=== PATIENT | female | born 1980 | race Hispanic/Latino ===

== ENCOUNTER 2017-08-02 09:24 | Observation (INO) | payer OTHER, SELFPAY ==
[2017-08-02 09:44] LABS: #Eosinphils 0.2 thou/uL (0.0-0.7); #Lymphocytes 2.7 thou/uL (1.20-3.40); #Monocytes 0.6 thou/uL (0.11-0.59); #Neutrophils 5.3 thou/uL (1.40-6.50); %Basophils 0.3 % (0.0-1.0); %Eosinophils 2.7 % (0.0-10.0); %Lymphocytes 30.4 % (21.0-51.0); %Monocytes 6.6 % (0.0-10.0); Hematocrit 47.2 % (36.0-47.0); Mean Platelet Volume 6.7 fL (7.4-10.4); Red Blood Cell (RBC) Count 5.28 mill/uL (4.20-5.40); White Blood Cell (WBC) Count 8.9 thou/uL (4.8-10.8)
[2017-08-02] MEDS ORDERED: Nitroglycerin 0.4 MG TAB (25 Tab Bottle) ONE (10:06)
[2017-08-02 10:07] LABS: ALT (SGPT) 14 U/L (8-55); AST (SGOT) 14 U/L (5-34); Alkaline Phosphatase 88 U/L (40-150); Anion Gap 15 mmol/L (10-20); BUN (Urea Nitrogen) 10 mg/dL (7.0-18.7); Bilirubin, Total 0.5 mg/dL (0.2-1.2); CK (CPK) 92 U/L (29-168); Calc. Creatinine Clearance 0 mL/min (70-130); Calcium 9.5 mg/dL (7.8-10.44); Carbon Dioxide 22 mmol/L (22-29); Chloride 104 mmol/L (98-107); Estimated GFR-MDRD 86; Lipase 18 U/L (8-78); Protein, Total 8.3 g/dL (6.0-8.3)
[2017-08-02 10:11] LABS: Troponin I Less than 0.010 ng/mL (< 0.028)
--- NOTE | 2017-08-02 10:46 | RAD ---
EXAM: ONE VIEW CHEST: HISTORY: Past medical history of chest pain. COMPARISON: 07/13/16. FINDINGS: Portable upright chest demonstrates a normal cardiac silhouette. The pulmonary vessels and hilum ar e normal. No mass. No consolidation. No pneumothorax or osseous abnormalities. IMPRESSION: No acute cardiopulmonary process. POS: [facility]
[2017-08-02] MEDS ORDERED: Ondansetron HCl/PF 4 MG/2 ML Vial ONE (10:50)
[2017-08-02] MEDS ORDERED: Ondansetron ODT 4 MG TAB SL PRN (12:09)
[2017-08-02] MEDS ORDERED: Ondansetron HCl/PF 4 MG/2 ML Vial IVP PRN (12:09)
[2017-08-02 13:02] LABS: Troponin I 0.012 ng/mL (< 0.028)
[2017-08-02 13:17] VITALS: BMI 39.9
[2017-08-02 16:09] LABS: Troponin I Less than 0.010 ng/mL (< 0.028)
[2017-08-02] MEDS ORDERED: Ketorolac Tromethamine 30 MG/ML VIAL IVP SCH (17:00)
--- NOTE | 2017-08-03 01:05 | HP-2 ---
PRIMARY CARE PHYSICIAN: None. CODE STATUS: FULL. ATTENDING PHYSICIAN: Brian Rodriguez M.D. CHIEF COMPLAINT: Left-sided chest pain. HISTORY OF PRESENT ILLNESS: A 36-year-old female with history of anxiety, presents with 3 days of left-sided chest and back pain. The pain started primarily in her left back ribs and slowly progressed to the front. It is worse with deep breaths, relieved slightly by lying on her right si de, worse with certain movements of her arms. Now, includes some left shoulder pressure-like pain t hat does not cause shortness of breath. The pain does not get worse with exertion, did not come on with exertion and does not improve with rest. In the ER, she was given Zofran. She declined nitrog lycerin and morphine and she was given aspirin. PAST MEDICAL HISTORY: 1. Hyperlipidemia, but follow up was normal Lipids, not currently on a statin. 2. Depression, not currently medically treated. 3. Anxiety, not currently medically treated. PAST SURGICAL HISTORY: x1 with bilateral tubal ligation. ALLERGIES: CODEINE (anaphylactic reaction). MEDICATIONS: None. FAMILY HISTORY: Diabetes, hypertension, hyperlipidemia with significant paternal history for acute coronary syndrome including her father having his first heart attack at age 50. SOCIAL HISTORY: The patient is a never smoker. Does not drink alcohol currently, but approximately 10 years ago, was a frequent binge type drinker. No recreational drugs. 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 REVIEW OF SYSTEMS: Review of systems was done and 12-point review of systems was negative except fo r what is mentioned above in the HPI. PHYSICAL EXAMINATION: VITAL SIGNS: Blood pressure 117/82, pulse 85, respiratory rate 18, T-max 97.9, pulse ox 97% on room air and current weight 97 kilograms. GENERAL: Alert and oriented x4, in no acute distress, obese and appropriately interactive. HEENT: PERRLA. EOMI. Conjunctivae within normal limits. TM, nasal mucosa and oropharynx within n ormal limits. NECK: Supple, without lymphadenopathy or thyromegaly. CARDIOVASCULAR: Regular rate and rhythm without murmurs or gallops. Radial pulses 2+, pedal pulses 2+. Chest was tender to palpation under the left breast and along approximately the 5th and 6th ri bs and back. This palpation created the same type of chest pain that patient was presenting for. RESPIRATORY: Normal effort without retractions. Clear to auscultation bilaterally. ABDOMEN: Soft and nontender to palpation. Bowel sounds x4 without mass or distention. EXTREMITIES: No clubbing, cyanosis or edema. MUSCULOSKELETAL: Structure and tone within normal limits. NEUROLOGIC: No focal deficits. Sensation within normal limits. PSYCHIATRIC: The patient is appropriate. LABORATORY DATA: White blood cell count 8.9, hemoglobin 16, hematocrit 47.2 and platelets 286. Sod ium 137, potassium 3.5, chloride 104, bicarbonate 22, BUN 10, creatinine 0.75, glucose 93 and tropon in less than 0.010. IMAGING DATA: EKG showed normal sinus rhythm, but with some nonspecific T-wave changes in lateral l zen[place] including inverted T waves in lead II. This was changed from previous, but the patient did hav e some nonspecific T-wave changes in most recent EKG prior to this. Chest x-ray with no acute disea se. ASSESSMENT AND PLAN: 1. Atypical chest pain, likely costochondritis, but we will trend troponins. We will repeat EKG if symptoms recur. Because of the inverted T waves even though this is likely nonacute coronary syndr ome, but with obesity and patient's family history, we will do a stress test to rule out susceptibil ity to myocardial infarctions and any current coronary artery disease. If troponins are negative, w e will treat the patient's pain with Toradol. 2. Deep venous thrombosis prophylaxis with sequential compression devices. History and physical exam as well as management discussed with Dr. Brian Rodriguez, he is in [facility].
--- NOTE | 2017-08-03 06:16 | HP ---
DATE OF SERVICE: 08/02/2017 DATE OF ADMISSION: 08/02/2017 CHIEF COMPLAINT: Chest pain. HISTORY OF PRESENT ILLNESS: This is a 36-year-old female who presents with a 2- day history of left-sided chest pain that she describes as sharp and squeezing, radiates into her left arm, but nowhere else. It has been persistent. It is worse with movement of the extremity, lying on her left side whenever pressure is applied to that side and with pressure over the left side of her sternum. There is no associated nausea, vomiting, dyspnea on exertion, diaphoresis or other symptoms. She did not really take anything and tried to make it better, but it got bad enough this morning, 06/15 that she decided to come in to be seen in the ER, she had an EKG, labs, given aspirin, D-dimer that was negative, admitted for chest pain rule out. PAST MEDICAL HISTORY: Significant for hyperlipidemia, depression, anxiety. PAST SURGICAL HISTORY: section and bilateral tubal ligation. ALLERGIES: CODEINE, which causes anaphylaxis. SOCIAL HISTORY: Denies tobacco, ethanol or drug use. FAMILY HISTORY: Positive for diabetes, hyperlipidemia, hypertension, coronary artery disease at young age in her father. MEDICATIONS: Currently on aspirin, Tylenol and Zofran p.r.n. REVIEW OF SYSTEMS: Constitutional: Negative for fever or chills. Eyes: Negative for decreased visual acuity or pain. Ears, nose, mouth and throat: No sore throat or oral lesions. Cardiovascular: See HPI. Respiratory: Denies cough or hemoptysis. Gastrointestinal: Denies nausea, vomiting, diarrhea or constipation. Genitourinary: Denies dysuria or urgency. Musculoskeletal: Denies myalgias or arthralgias except as documented in HPI. Skin: Denies rash or lesions. Neurologic: Denies weakness or numbness. Psychiatric: Positive for depression and anxiety. Heme: Denies any bruising or bleeding. PHYSICAL EXAMINATION: VITAL SIGNS: Most recent temperature of 97.7, pulse 83, respirations 12, O2 sat on room air is 96%, blood pressure 109/67. GENERAL: She is in no acute distress. She just ate some Crum's in the room. HEENT: Eyes: Without icterus or injection. Ears, nose, mouth and throat: Moist mucous membranes. Pinna normal. Nares patent. CARDIOVASCULAR: Regular rate and rhythm without murmurs, gallops or rubs. No peripheral edema. RESPIRATORY: Clear to auscultation bilaterally with no increased work of breathing. GASTROINTESTINAL: Bowel sounds positive. Nontender to palpation. GENITOURINARY: Deferred. MUSCULOSKELETAL: She is tender to palpation in the left costochondral junction kind of throughout the entire left side and says this is pretty consistent with pain she has been having. SKIN: No obvious rash or wound. NEUROLOGIC: Motor is 5/5 in upper and lower extremities. Sensation is intact to light touch throughout in those distributions as well. PSYCHIATRIC: Alert and oriented x3. Mood and affect appropriate for current medical situation. LABORATORY AND IMAGING DATA: White count 8.9, hemoglobin 16.0, platelets 286. D-dimer 0.29, which is negative. Sodium 137, potassium 3.5, chloride 104, bicarbonate 22, BUN 10, creatinine 0.75 with estimated GFR 86, glucose 93, mag 2.3 and reassuring LFTs, creatine kinase 92. Troponin, the first is 0.01, second 0.012, and the third is less than 0.01. Lipase 18. BNP is 32.6. Chest x-ray with no acute process. EKG, normal sinus rhythm, very shallow T-wave inversions in V3 and V4. ASSESSMENT AND PLAN: This is a 36-year-old female with atypical chest pain. 1. In light of her family history and some mild EKG changes, will go ahead and proceed with the imaging. I will continue aspirin pending risk stratification. 2. Hyperlipidemia. We will go ahead and order lipid panel and restart statin depending upon her ASCVD risk. 3. Obesity. We will student counsellor weight loss and exercise, send A1c Deep venous thrombosis prophylaxis with sequential compression devices. MTDD
--- NOTE | 2017-08-03 06:38 | PDOC.FM ---
- Subjective Subjective: Patient states she had a good night. She was unable to have the full stress test done yesterday and she is waiting to go for the second part today. She denies chest pain, sob, n/v/d. She does admit to some left sided rib pain. She admits to some cough after trying to take a deep breath and that is when the pain is the worse. She does not have any other complaints at this time. - Objective Vital Signs & Weight: Vital Signs (12 hours) Temp Pulse Resp BP BP Pulse Ox 08/03/17 04:12 98.7 F 56 L 14 112/76 96 08/02/17 19:57 97.4 F L 69 12 105/65 95 08/02/17 19:56 97.7 F 83 12 Weight Weight 95.708 kg I&O: 08/01/17 08/02/17 08/03/17 06:59 06:59 06:59 Intake Total 500 Balance 500 Result Diagrams: 08/02/17 09:38 08/02/17 09:38 <Matt Layne - Last Filed: 08/03/17 08:14> - Objective Vital Signs & Weight: Vital Signs (12 hours) Temp Pulse Resp BP Pulse Ox 08/03/17 08:00 97.8 F 62 16 08/03/17 07:27 97.8 F 62 16 110/69 100 08/03/17 04:12 98.7 F 56 L 14 112/76 96 Weight Weight 95.708 kg I&O: 08/02/17 08/03/17 08/04/17 06:59 06:59 06:59 Intake Total 500 240 Balance 500 240 Result Diagrams: 08/02/17 09:38 08/02/17 09:38 <Freddy Hill - Last Filed: 08/03/17 11:11> Phys Exam - Physical Examination HEENT: PERRLA, moist MMs Neck: no nodes, supple Respiratory: no wheezing, clear to auscultation bilateral Cardiovascular: RRR, no significant murmur Gastrointestinal: soft, non-tender, no distention, positive bowel sounds Musculoskeletal: no edema, pulses present Tenderness under her Left breast. More positional than to palpation Neurological: non-focal, moves all 4 limbs Psychiatric: normal affect, A&O x 3 <Matt Layne - Last Filed: 08/03/17 08:14> Dx/Plan (1) Costochondritis Code(s): M94.0 - CHONDROCOSTAL JUNCTION SYNDROME [TIETZE] Status: Acute Plan: -Troponins negative -Part 2/2 stress today. -Tylenol for pain. (2) Anxiety associated with depression Status: Acute Plan: -Not currently medicated and doing well. -Recommend follow up as an outpatient if needing more intervention. (3) Hyperlipidemia Code(s): E78.5 - HYPERLIPIDEMIA, UNSPECIFIED Status: Chronic Plan: -History of hyperlipidemia -Not currently medicated. -Triglycerides 160 -Total Cholesterol 204 -LDL 135 -HDL 37 -Will recommend outpatient follow up - Plan Plan: Pending results of stress test, will be discharged today. <Matt Layne - Last Filed: 08/03/17 08:14> Attending Addendum - Attending Addendum I personally evaluated the patient and discussed the management with Dr. Layne. I agree with the History, Examination, Assessment and Plan documented above with any addition or exceptions noted below. Patient has had no recurrence of chest pain since admission. Reports arm soreness with movement as likely cause of her symptoms. Stress test completed this morning, will await final read. If normal, able to d/c home today. Recommend statin medication due to elevated TC and LDL. <Freddy Hill - Last Filed: 08/03/17 11:11>
[2017-08-03] MEDS: Acetaminophen 325 MG TAB PO PRN ×2 (07:11→11:23)
[2017-08-03] MEDS: Aspirin 325 MG TAB PO SCH ×2 (10:30→11:25)
[2017-08-03] MEDS: Ketorolac Tromethamine 30 MG/ML VIAL IVP SCH ×2 (11:21→11:25)
--- NOTE | 2017-08-03 11:21 | NM ---
CARDIAC SPECT: CLINICAL HISTORY: 36-year-old female with chest pain, hypertension, diabetes, and dyslipidemia. TECHNIQUE: A myocardial perfusion scan was performed using the single isotope two day protocol with 30 mCi tech netium-99m sestamibi injected intravenously for both stress and rest images. Exercise stress was mon itored and interpreted by Dr. Yusuf. FINDINGS: A small fixed defect is seen in the apex. No reversible defects are identified. GATED SPECT LVEF: 76%. WALL MOTION EXAM: Normal. IMPRESSION: No evidence of reversible ischemia. POS: [facility]
[2017-08-03 11:46] VITALS: BP 111/59; TEMP 97.5
--- NOTE | 2017-08-04 01:51 | DIS-2 ---
DATE OF ADMISSION: 08/02/2017 DATE OF DISCHARGE: 08/03/2017 RESIDENT: Dr. Layne. ADMITTING ATTENDING: Dr. Rodriguez. DISCHARGE ATTENDING: Dr. Hill. CONSULTATIONS: None. PROCEDURES: Nuclear medicine stress test. PRIMARY DIAGNOSES: 1. Costochondritis. 2. Anxiety associated with depression. 3. Hyperlipidemia. DISCHARGE MEDICATIONS: 1. Simvastatin 10 mg daily. 2. Meloxicam 7.5 mg daily. DISCONTINUED MEDICATIONS: None. HISTORY OF PRESENT ILLNESS AND HOSPITAL COURSE: This is a 36-year-old female with a histor y of anxiety that presents with 3 days of left-sided chest pain and back pain. The pain started emeka sanjana in her left back and ribs, slowly it progressed to the front. It is worse with deep breaths, relieved slightly by lying on right side, worse with certain movements of her arms. Now include so me left shoulder pressure-like pain that does not cause shortness of breath. The pain does not get worse with exertion, did not come on with exertion and does not improve with rest. In the ER, she w as given Zofran. She declined nitroglycerin and morphine and she was given aspirin. During her hos pitalization, she did have a cardiac stress test, and she had to have a 2-day stress because of the contrast burden. The cardiac stress test came back negative and within normal result without any ev idence of reversible ischemia. The patient did still complain of the left-sided more chest wall arleth n and she said it was more positional when she would move is when the pain would cause the most. Sh e did say that Toradol helped the pain at that time. She did have a lab value significant for saanz sterol level of 204, a triglyceride level of 160, and an LDL cholesterol level of 135. She has been told previously that she has hyperlipidemia, but was not treated. We do recommend at this time ini tiating a simvastatin 10 mg and her following up with PCP for more long-term management. During the hospitalization, she also had troponin I's trended, they are less than 0.01, 0.012, and then less t jasmine 0.01. She had no other notable labs. She did have a chest x-ray that showed no acute cardiopul monary process. She tolerated the hospitalization well and was discharged in satisfactory condition . DISPOSITION: Stable. DISCHARGE INSTRUCTIONS: 1. Location: She will be discharged home into her own care. 2. Diet will be as tolerated, but we do recommend exercise and diet plan. 3. Activity will be as tolerated with no restrictions. 4. Follow up will be with [facility] within 1 week as well as being followed up for her hypercholesterolemia. We wished her the best of luck and hope she has no further problems from a c ardiac standpoint.
== END 2017-08-03 13:25 | disposition home or self-care (01) ==
LOC: ERS 09:24 → 2SW 10:40
PROVIDERS: ADMIT Family Medicine; ATTEND Family Medicine
DX: M94.0 Chondrocostal junction syndrome [Tietze] (principal); F41.8 Other specified anxiety disorders; E78.5 Hyperlipidemia, unspecified; Z88.5 Allergy status to narcotic agent; Z79.899 Other long term (current) drug therapy; Z98.51 Tubal ligation status
CPT/HCPCS: 36415; 71010; 78452; 80053; 80061; 82550; 82553; 83690; 83735; 83880; 84484; 85025; 85379; 93005; 93017; 96360; 96361; 96374; A9500; G0378; J1885; J2270; J2405

== ENCOUNTER 2017-10-21 11:02 | Emergency (ER) | payer SELFPAY ==
[2017-10-21] MEDS ORDERED: Ibuprofen 200 MG TAB ONE (12:16)
== END 2017-10-21 12:20 | disposition home or self-care (01) ==
LOC: ERS 11:02
DX: J02.9 Acute pharyngitis, unspecified (principal); E78.5 Hyperlipidemia, unspecified; F41.9 Anxiety disorder, unspecified; F32.9 Major depressive disorder, single episode, unspecified
CPT/HCPCS: 87081; 87430; 99283

== ENCOUNTER 2017-10-24 20:01 | Emergency (ER) | payer SELFPAY | END 2017-10-24 20:17 | disposition left against medical advice (07) | LOC: ERS 20:01 | DX: Z53.21 Procedure and treatment not carried out due to patient leaving prior to being seen by health care provider (principal) ==

== ENCOUNTER 2017-11-14 12:34 | Emergency (ER) | payer SELFPAY, OTHER ==
--- NOTE | 2017-12-02 22:42 | EKG ---
Test Reason : Blood Pressure : / mmHG Vent. Rate : 080 BPM Atrial Rate : 080 BPM P-R Int : 144 ms QRS Dur : 086 ms QT Int : 348 ms P-R-T Axes : 050 000 013 degrees QTc Int : 401 ms Normal sinus rhythm Normal ECG Confirmed by PRESTON ALLEN ([id number]), business editor KATIE RAMIREZ ([id number]) on 12/02/2017 10:40:52 PM Referred By: [facility] Confirmed By:PRESTON ALLEN
--- NOTE | 2017-12-02 22:42 | EKG ---
Test Reason : Blood Pressure : / mmHG Vent. Rate : 074 BPM Atrial Rate : 074 BPM P-R Int : 148 ms QRS Dur : 086 ms QT Int : 374 ms P-R-T Axes : 063 014 024 degrees QTc Int : 415 ms Normal sinus rhythm Normal ECG Confirmed by PRESTON ALLEN ([id number]), medical editor KATIE RAMIREZ ([id number]) on 12/02/2017 10:40:57 PM Referred By: Confirmed By:PRESTON ALLEN
== END 2017-11-14 20:39 | disposition home or self-care (01) ==
LOC: ERS 12:34
DX: J06.9 Acute upper respiratory infection, unspecified (principal); F41.9 Anxiety disorder, unspecified; Z79.899 Other long term (current) drug therapy
CPT/HCPCS: 87804; 93005

== ENCOUNTER 2018-05-25 00:22 | Emergency (ER) | payer SELFPAY ==
[2018-05-25] MEDS ORDERED: Acetaminophen 650 MG Suppository ONE (00:30)
[2018-05-25 00:51] LABS: #Basophils 0.1 thou/uL (0.0-0.2); #Eosinphils 0.2 thou/uL (0.0-0.7); #Lymphocytes 2.2 thou/uL (1.20-3.40); #Monocytes 0.6 thou/uL (0.11-0.59); #Neutrophils 3.3 thou/uL (1.40-6.50); %Basophils 1.3 % (0.0-1.0); %Eosinophils 2.4 % (0.0-10.0); %Lymphocytes 34.1 % (21.0-51.0); %Monocytes 9.6 % (0.0-10.0); %Neutrophils 52.6 % (42.0-75.0); Mean Corpuscular HGB CONC 34.8 g/dL (32.0-36.0); Mean Corpuscular Hemoglobin 30.4 pg (27.0-31.0); Mean Corpuscular Volume 87.3 fL (78.0-98.0); Mean Platelet Volume 6.9 fL (7.4-10.4); Platelet Count 247 thou/uL (130-400); Red Blood Cell (RBC) Count 4.59 mill/uL (4.20-5.40); White Blood Cell (WBC) Count 6.4 thou/uL (4.8-10.8)
[2018-05-25 01:02] LABS: Bilirubin Negative (Negative); Blood, Urine Moderate (Negative); Clarity CLEAR (Clear); Glucose, Urine (Dipstick) Negative (Negative); Leukocyte Small (Negative); Nitrite Negative (Negative); Protein, Urine (Dipstick) Negative (Neg-Trace); Specific Gravity, Urine 1.015 (1.002-1.036); Urobilinogen 0.2 mg/dL (0.2-1.0); pH, Urine 6.5 (5.0-9.0)
[2018-05-25 01:04] LABS: Amphetamine Not Detected (NotDetected); Barbiturates Screen Not Detected (NotDetected); Benzodiazepine Screen Not Detected (NotDetected); Cocaine Metabolite Screen Not Detected (NotDetected); Medtox Control Line Valid? VALID (VALID); Medtox Reader # READER 4; Methadone Not Detected (NotDetected); Methamphetamine Not Detected (NotDetected); Opiate Screen Not Detected (NotDetected); Oxycodone Screen Not Detected (NotDetected); Phencyclidine (PCP) Not Detected (NotDetected); THC/Cannabinoid Screen Not Detected (NotDetected); Tricyclic Screen Not Detected (NotDetected)
[2018-05-25 01:05] LABS: Bacteria/HPF Rare-Few HPF (None Seen); Hyaline Casts/LPF 0-3 HYALINE CAST LPF (0-3 Hyaline); Pathc Cast-AUWi Flag 0.29 (0-2.49); Pregnancy Test - Urine (BHCG) Negative (Negative); Pregu Control Background? CLEAR/WHITE (CLR/WHITE); Pregu Control Bar Appear? YES (CONTROL BAR); RBC/HPF 0-3 HPF (0-3); Specific Gravity 1.015 (1.002-1.036)
[2018-05-25 01:16] LABS: ALT (SGPT) 22 U/L (8-55); AST (SGOT) 22 U/L (5-34); Albumin 3.9 g/dL (3.5-5.0); Alkaline Phosphatase 99 U/L (40-150); Anion Gap 13 mmol/L (10-20); BUN (Urea Nitrogen) 11 mg/dL (7.0-18.7); Bilirubin, Total 0.3 mg/dL (0.2-1.2); Calc. Creatinine Clearance 0 mL/min (70-130); Calcium 8.9 mg/dL (7.8-10.44); Carbon Dioxide 20 mmol/L (22-29); Chloride 105 mmol/L (98-107); Estimated GFR-MDRD 87; Globulin 3.6 g/dL (2.4-3.5); Glucose 92 mg/dL (70-105); Lipase 35 U/L (8-78); Potassium 3.7 mmol/L (3.5-5.1); Protein, Total 7.5 g/dL (6.0-8.3); Sodium 134 mmol/L (136-145)
[2018-05-25 01:17] LABS: Acetaminophen Less than 6.0 mcg/mL (10.0-30.0); Alcohol Less than 10 mg/dL (Less than 10); Salicylate Less than 8.0 mg/dL (15.0-30.0)
[2018-05-25 02:05] LABS: Troponin I Less than 0.010 ng/mL (< 0.028)
[2018-05-25] MEDS ORDERED: cefTRIAXone\\ROCEPHIN 1 GM VIAL ONE (03:19)
--- NOTE | 2018-05-25 07:53 | RAD ---
CHEST 1 VIEW: HISTORY: Chest pain. COMPARISON: A chest radiograph 08/02/17. FINDINGS: Lungs are hypoinflated with vascular crowding. There appears to be a left upper lobe airspace opacit y that may be sequelae of technique. No pneumothorax. IMPRESSION: Possible left upper lobe airspace opacity may be sequelae of technique. Followup 2 views of the ches t may be beneficial. POS: [facility]
--- NOTE | 2018-05-25 10:31 | CT ---
PRELIMINARY REPORT/[facility]/EMERGENTY AFTER-HOURS PROCEDURE CT Head Without Intravenous Contrast EXAM DATE/TIME: 05/25/2018 12:59 AM CLINICAL HISTORY: 37 years old, female; Signs and symptoms; Altered mental status/memory loss; Patient HX: AMS TECHNIQUE: Axial computed tomography images of the head/brain without intravenous contrast. All CT scans at this facility use at least one of these dose optimization techniques: automated exposure control; mA and/ or kV adjustment per patient size (includes targeted exams where dose is matched to clinical indicati on); or iterative reconstruction. COMPARISON: No relevant prior studies available. FINDINGS: Limitations: Motion artifact limits this study. Brain: No evidence of acute intracranial hemorrhage, extraxial fluid or midline shift. No evidence of acute large vessel infarction. Ventricles: Normal. No ventriculomegaly. Bones/joints: Normal. No acute fracture. Sinuses: Normal as visualized. No acute sinusitis. Mastoid air cells: Normal as visualized. No mastoid effusion. Soft tissues: Normal. IMPRESSION: 1. Motion artifact limits this study. 2. No evidence of acute intracranial hemorrhage, extraxial fluid or midline shift. 3. No evidence of acute large vessel infarction. Thank you for allowing us to participate in the care of your patient. Dictated and Authenticated by: Pancho Gonzalez MD 05/25/2018 2:27 AM Central Time ([place] & [place]) FINAL REPORT EMERGENCY AFTER HOURS BRAIN CT WITHOUT IV CONTRAST: Date: 05/25/18 Time: 0059 hours HISTORY: 37-year-old female with history of altered mental status. FINDINGS/IMPRESSION: No mass or bleed, or other significant acute process. Little change from 03/21/14. Report in agreement with preliminary report given on-call by Rebekah. POS: [facility]
== END 2018-05-25 04:54 | disposition home or self-care (01) ==
LOC: ERS 00:22
DX: R55 Syncope and collapse (principal); N39.0 Urinary tract infection, site not specified
CPT/HCPCS: 36415; 36416; 51701; 70450; 71045; 80053; 80306; 80307; 81003; 81015; 81025; 82553; 83605; 83690; 83880; 84484; 85025; 87040; 87077; 87086; 87186; 93005; 96361; 96365; J0696

== ENCOUNTER 2019-07-08 07:25 | Emergency (ER) | payer SELFPAY ==
[2019-07-08] MEDS ORDERED: Acetaminophen 500 MG TAB ONE (07:50)
[2019-07-08] MEDS ORDERED: Ketorolac Tromethamine 30 MG/ML VIAL ONE (07:50)
[2019-07-08 08:08] LABS: #Eosinphils 0.1 thou/uL (0.0-0.7); #Monocytes 0.6 thou/uL (0.11-0.59); #Neutrophils 5.6 thou/uL (1.40-6.50); %Basophils 0.5 % (0.0-1.0); %Eosinophils 1.8 % (0.0-10.0); %Lymphocytes 24.1 % (21.0-51.0); %Monocytes 7.4 % (0.0-10.0); %Neutrophils 66.3 % (42.0-75.0); Hemoglobin 14.1 g/dL (12.0-16.0); Mean Corpuscular HGB CONC 34.1 g/dL (32.0-36.0); Mean Corpuscular Hemoglobin 30.2 pg (27.0-31.0); Mean Corpuscular Volume 88.3 fL (78.0-98.0); Mean Platelet Volume 7.3 fL (7.4-10.4); Platelet Count 277 thou/uL (130-400); RBC Distribution Width 11.1 % (11.5-14.5); Red Blood Cell (RBC) Count 4.69 mill/uL (4.20-5.40); White Blood Cell (WBC) Count 8.4 thou/uL (4.8-10.8)
== END 2019-07-08 09:20 | disposition home or self-care (01) ==
LOC: ERS 07:25
DX: R51 Headache (principal); M62.838 Other muscle spasm; F41.9 Anxiety disorder, unspecified
CPT/HCPCS: 85025; 96361; 96374; J1885

== ENCOUNTER 2020-03-13 15:07 | Inpatient (IN) | payer OTHER, SELFPAY ==
[2020-03-13] MEDS ORDERED: Acetaminophen 500 MG TAB ONE (15:29)
[2020-03-13] MEDS ORDERED: Ketorolac Tromethamine 30 MG/ML VIAL ONE (15:29)
[2020-03-13 15:32] LABS: #Basophils 0.1 thou/uL (0.0-0.2); #Eosinphils 0.1 thou/uL (0.0-0.7); #Lymphocytes 1.7 thou/uL (1.20-3.40); #Monocytes 0.9 thou/uL (0.11-0.59); #Neutrophils 8.9 thou/uL (1.40-6.50); %Basophils 0.6 % (0.0-1.0); %Eosinophils 0.8 % (0.0-10.0); %Lymphocytes 14.5 % (21.0-51.0); %Monocytes 7.5 % (0.0-10.0); %Neutrophils 76.6 % (42.0-75.0); Hemoglobin 14.4 g/dL (12.0-16.0); Mean Corpuscular HGB CONC 33.8 g/dL (32.0-36.0); Mean Corpuscular Hemoglobin 30.4 pg (27.0-31.0); Mean Corpuscular Volume 89.8 fL (78.0-98.0); Mean Platelet Volume 7.2 fL (7.4-10.4); Platelet Count 251 thou/uL (130-400); Red Blood Cell (RBC) Count 4.74 mill/uL (4.20-5.40); White Blood Cell (WBC) Count 11.7 thou/uL (4.8-10.8)
[2020-03-13] MEDS ORDERED: Ondansetron PF 4 MG/2 ML Vial ONE (15:33)
[2020-03-13 15:53] LABS: ALT (SGPT) 24 U/L (8-55); AST (SGOT) 18 U/L (5-34); Albumin 3.9 g/dL (3.5-5.0); Alkaline Phosphatase 109 U/L (40-110); Anion Gap 16 mmol/L (10-20); BUN (Urea Nitrogen) 8 mg/dL (7.0-18.7); Bilirubin, Total 0.3 mg/dL (0.2-1.2); Calc. Creatinine Clearance 0 mL/min (70-130); Calcium 9.1 mg/dL (7.8-10.44); Carbon Dioxide 20 mmol/L (22-29); Chloride 105 mmol/L (98-107); Estimated GFR-MDRD Greater than 90; Globulin 3.6 g/dL (2.4-3.5); Glucose 96 mg/dL (70-105); Potassium 3.7 mmol/L (3.5-5.1); Protein, Total 7.5 g/dL (6.0-8.3); Sodium 137 mmol/L (136-145)
--- NOTE | 2020-03-13 16:01 | RAD ---
PORTABLE CHEST: 03/13/20 PROVIDED CLINICAL HISTORY: Dyspnea. FINDINGS: Comparison 05/25/18. The cardiac and mediastinal silhouette is within normal limits. There is consolidation at the right lung base. The lungs appear otherwise clear. No pleural fluid or pneumothorax apparent. IMPRESSION: Right basilar consolidation, compatible with pneumonia in the appropriate clinical context. POS: [facility]
[2020-03-13 17:46] LABS: Base Excess-Venous 0.9 mmol/L (-2.0 to 3.0); Bicarbonate (HCO3v) 20.9 mmol/L (22.0-28.0); CO2 Tension (PvCO2) 22.7 mmHg (40.0-50.0); Calcium, Ionized 0.88 mmol/L (See Comments:); Chloride 106 mmol/L (98-107); Hemoglobin - Calc 15.3 g/dL (12.0-16.0); Potassium 3.6 mmol/L (3.5-5.1); Sodium 136 mmol/L (138-145); T. Carbon Dioxide 21.6 mmol/L (22.0-28.0); vO2 Saturation-calc 96.1 % (60.0-85.0)
[2020-03-13] MEDS ORDERED: Ondansetron ODT 4 MG TAB PO PRN (20:26)
[2020-03-13] MEDS ORDERED: HYDROcodone/Acetaminophen 5/325 mg Tablet PO PRN (20:26)
[2020-03-13] MEDS ORDERED: Ondansetron PF 4 MG/2 ML Vial IVP PRN (20:26)
[2020-03-13 22:49] VITALS: BMI 42.0
--- NOTE | 2020-03-13 22:49 | PDOC.HHP ---
Hospitalist HPI - History of Present Illness cough dyspnea History of Present Illness: Case of an 39 y/o female with no pmhx who comes to hospital due to dyspnea fever and general malaise. patient refers she was on her usual state of health until yesterday when she had a quantified fever of 101. patient refers that apart from the fever she started with some cough with sputum production yellow/ greenish secretions, general malaise, myalgias and generalize weakness. she refers she was feeling pretty bad and went to the bathroom and she thinks she passed out because she wake up on the floor with his son by his side for which she was brought to hospital. patient denies any chest pain or diaphoresis but does feel her heart rate is elevated. patient denies any travel or sick contacts Hospitalist ROS - Review of Systems All other systems reviewed; all pertinent +/- noted in HPI/Subj Hospitalist History - Past Surgical History Past Surgical History: reports: , Tubal Ligation - Family History Family History: reports: cancer, diabetes mellitus, hypertension - Social History Smoking Status: Never smoker Alcohol: reports: None Drugs: reports: none Living Situation: With Family Activity level: independent ambulation - Exam General Appearance: ill appearing Eye: PERRL, anicteric sclera Neck: supple, symmetric, no JVD Heart: RRR, no murmur, no gallops Respiratory: CTAB, no wheezes, no rales, no ronchi Gastrointestinal: soft, non-tender, non-distended Extremities: no cyanosis, no clubbing, no edema Skin: normal turgor, no lesions, no rashes Neurological: cranial nerve grossly intact, normal sensation to touch, no weakness, no focal deficits Musculoskeletal: normal tone, normal strength, no muscle wasting Psychiatric: normal affect, normal behavior, A&O x 3 Hospitalist Results - Labs Result Diagrams: 03/13/20 15:23 03/13/20 15:23 Lab results: WBC 11.7 thou/uL (4.8-10.8) H 03/13/20 15:23 Hgb 14.4 g/dL (12.0-16.0) 03/13/20 15:23 Hct 42.5 % (36.0-47.0) 03/13/20 15:23 MCV 89.8 fL (78.0-98.0) 03/13/20 15:23 Plt Count 251 thou/uL (130-400) 03/13/20 15:23 Neutrophils % 76.6 % (42.0-75.0) H 03/13/20 15:23 VBG pCO2 22.7 mmHg (40.0-50.0) L* 03/13/20 15:48 VBG pO2 67.8 mmHg (35.0-45.0) H 03/13/20 15:48 Sodium 137 mmol/L (136-145) 03/13/20 15:23 Potassium 3.7 mmol/L (3.5-5.1) 03/13/20 15:23 Chloride 105 mmol/L (98-107) 03/13/20 15:23 Carbon Dioxide 20 mmol/L (22-29) L 03/13/20 15:23 BUN 8 mg/dL (7.0-18.7) 03/13/20 15:23 Creatinine 0.70 mg/dL (0.6-1.1) 03/13/20 15:23 Glucose 96 mg/dL (70-105) 03/13/20 15:23 Calcium 9.1 mg/dL (7.8-10.44) 03/13/20 15:23 Total Bilirubin 0.3 mg/dL (0.2-1.2) 03/13/20 15:23 AST 18 U/L (5-34) 03/13/20 15:23 ALT 24 U/L (8-55) 03/13/20 15:23 Alkaline Phosphatase 109 U/L (40-110) 03/13/20 15:23 Troponin I Less than 0.010 ng/mL (< 0.028) 03/13/20 15:23 B-Natriuretic Peptide 14.5 pg/mL (0-100) 03/13/20 15:23 Serum Total Protein 7.5 g/dL (6.0-8.3) 03/13/20 15:23 Albumin 3.9 g/dL (3.5-5.0) 03/13/20 15:23 - Radiology Interpretation Chest x-ray Status: report reviewed by me (R basilar consolidation) Hospitalist H&P A/P - Problem (1) Pneumonia Code(s): J18.9 - PNEUMONIA, UNSPECIFIED ORGANISM Status: Acute (2) COVID-19 ruled out Code(s): Z03.818 - ENCNTR FOR OBS FOR SUSP EXPSR TO OT BIOLG AGENTS RULED OUT Status: Acute (3) Dyspnea Code(s): R06.00 - DYSPNEA, UNSPECIFIED Status: Acute (4) Syncope Code(s): R55 - SYNCOPE AND COLLAPSE Status: Acute - Plan Plan: pneumonia / covid 19 r/o - patient arrived with fever chills tachycardia and mild leukocytosis, blood and sputum cultures were taken, abx were started. covid 19 test taken at the ED, cxr with R consolidation. covid precautions were taken syncope - patient refers episode of passing out, no post ictal state, initial trop negative, likely secondary to above, will run serial troponins and order d- dimer, will also send 2d echo, f/u results. will monitor with tele, ekg showed sinus tachy
[2020-03-13] MEDS: Sodium Chloride 0.9% 1,000 ML IV SCH (23:37)
[2020-03-13] MEDS: Acetaminophen 325 MG TAB PO PRN (23:49)
[2020-03-13 23:55] LABS: Troponin I Less than 0.010 ng/mL (< 0.028)
[2020-03-14 03:16] LABS: Band 2 % (5-11); Lymphocytes 10 % (21-51); MDiff Complete? YES; Mean Corpuscular HGB CONC 34.2 g/dL (32.0-36.0); Mean Corpuscular Volume 90.6 fL (78.0-98.0); Mean Platelet Volume 7.4 fL (7.4-10.4); Monocytes 6 % (0-10); Neutrophil 82 % (42-75); Platelet Count 216 thou/uL (130-400); RBC Distribution Width 10.9 % (11.5-14.5); Red Blood Cell (RBC) Count 4.18 mill/uL (4.20-5.40); White Blood Cell (WBC) Count 10.3 thou/uL (4.8-10.8)
[2020-03-14 03:17] LABS: Troponin I 0.021 ng/mL (< 0.028)
[2020-03-14 03:39] LABS: ALT (SGPT) 21 U/L (8-55); AST (SGOT) 15 U/L (5-34); Albumin 3.5 g/dL (3.5-5.0); Alkaline Phosphatase 91 U/L (40-110); Anion Gap 13 mmol/L (10-20); BUN (Urea Nitrogen) 5 mg/dL (7.0-18.7); Bilirubin, Total 0.4 mg/dL (0.2-1.2); Calc. Creatinine Clearance 176 mL/min (70-130); Calcium 8.3 mg/dL (7.8-10.44); Carbon Dioxide 19 mmol/L (22-29); Chloride 106 mmol/L (98-107); Estimated GFR-MDRD Greater than 90; Globulin 3.1 g/dL (2.4-3.5); Glucose 107 mg/dL (70-105); Potassium 3.6 mmol/L (3.5-5.1); Protein, Total 6.6 g/dL (6.0-8.3); Sodium 134 mmol/L (136-145)
[2020-03-14] MEDS: Acetaminophen 325 MG TAB PO PRN ×5 (04:05→21:50)
[2020-03-14] MEDS: Enoxaparin Sodium 40 MG/0.4 ML SYRINGE SC SCH (07:41)
[2020-03-14] MEDS: Sodium Chloride 0.9% 1,000 ML IV SCH (07:43)
--- NOTE | 2020-03-14 15:05 | PDOC.HOSPP ---
- Subjective Encounter Date: 03/14/20 Encounter Time: 15:00 Subjective: f/u for R-sided PNA and COVID-19 rule out currently receiving Levaquin IV. Still with prominent coughing. - Objective Vital Signs & Weight: Vital Signs (12 hours) Temp Pulse Resp BP Pulse Ox 03/14/20 12:00 99.3 F 99 20 122/67 99 03/14/20 08:00 99.2 F 100 20 130/66 95 Weight Weight 222 lb 6 oz I&O: 03/13/20 03/14/20 03/15/20 06:59 06:59 06:59 Intake Total 1350 600 Output Total 1600 Balance 1350 -1000 Result Diagrams: 03/14/20 02:45 03/14/20 02:45 Additional Labs: Microbiology 03/13/20 20:59 Venous blood - Right Hand Blood Culture - Preliminary Specimen has been received and culture in progress. No Growth to date. 03/13/20 20:59 Venous blood - Left Hand Blood Culture - Preliminary Specimen has been received and culture in progress. No Growth to date. Laboratory Tests 03/13/20 03/13/20 03/13/20 15:23 15:23 15:23 WBC 11.7 H Neutrophils % 76.6 H Neutrophils % (Manual) D-Dimer Carbon Dioxide 20 L Troponin I B-Natriuretic Peptide 14.5 03/13/20 03/13/20 03/13/20 15:23 15:23 23:23 WBC Neutrophils % Neutrophils % (Manual) D-Dimer Less than 0.27 L Carbon Dioxide Troponin I Less than 0.010 Less than 0.010 B-Natriuretic Peptide 03/14/20 03/14/20 02:45 02:45 WBC Neutrophils % Neutrophils % (Manual) 82 H D-Dimer Carbon Dioxide Troponin I 0.021 B-Natriuretic Peptide Radiology Reviewed by me: Yes (Echo - EF 55-60%,PCXR - RLL infiltrate) EKG Reviewed by me: Yes (Tele - SR) Hospitalist ROS - Medication Medications: Active Medications Generic Name Dose Route Start Last Admin Trade Name Freq PRN Reason Stop Dose Admin Acetaminophen 650 mg 03/13/20 20:26 03/14/20 11:48 Tylenol PO 650 mg Q4H PRN Administration Headache/Fever/Mild Pain (1-3) Enoxaparin Sodium 40 mg 03/14/20 09:00 03/14/20 07:41 Lovenox SC 40 mg 0900 MONICA Administration Levofloxacin 750 mg/ Device 150 mls @ 100 mls/hr 03/13/20 20:30 03/13/20 23: 37 IVPB 150 mls Q24HR MONICA Administration Sodium Chloride 1,000 mls @ 100 mls/hr 03/13/20 20:30 03/14/20 07:43 Normal Saline 0.9% IV 1,000 mls .Q10H MONICA Administration - Exam General Appearance: awake alert, ill appearing General - other findings: responsive to questions Eye: PERRL, anicteric sclera ENT: normocephalic atraumatic, no oropharyngeal lesions Neck: supple, symmetric, no JVD, no thyromegaly Heart: RRR, no murmur, no gallops, no rubs, normal peripheral pulses Respiratory: rhonchi, tachypneic Gastrointestinal: soft, non-tender, non-distended, normal bowel sounds, no palpable masses Extremities: no cyanosis, no clubbing, no edema Skin: normal turgor, no lesions Neurological: cranial nerve grossly intact, no new deficit Musculoskeletal: normal tone, normal strength, no muscle wasting Psychiatric: normal affect, A&O x 3 Hosp A/P (1) Pneumonia Code(s): J18.9 - PNEUMONIA, UNSPECIFIED ORGANISM Status: Acute Qualifiers: Pneumonia type: due to Pneumococcus Laterality: right Lung location: lower lobe of lung Qualified Code(s): J13 - Pneumonia due to Streptococcus pneumoniae Plan: Bacterial PNA suspected, continue Levaquin 750mg IV daily, await final blood cx results (2) Dyspnea Code(s): R06.00 - DYSPNEA, UNSPECIFIED Status: Acute Plan: Due to #1, see above, add Albuterol MDI 2puffs q4h (3) COVID-19 ruled out Code(s): Z03.818 - ENCNTR FOR OBS FOR SUSP EXPSR TO OTH BIOLG AGENTS RULED OUT Status: Acute Plan: Awaiting COVID-19 results (4) Syncope Code(s): R55 - SYNCOPE AND COLLAPSE Status: Acute Plan: Likely due to vasovagal response - Plan continue antibiotics, social worker health services, respiratory therapy, DVT proph w/SCDs Continue resp isolation Albuterol MDI Continue Levaquin IV Await final COVID-19 serology O2 support PRN
[2020-03-14 17:10] LABS: SARS-CoV-2 MS2 Positive; SARS-CoV-2 N Gene Negative; SARS-CoV-2 S Gene Negative; SARS-CoV-2 orf1ab Negative
[2020-03-15] MEDS: Sodium Chloride 0.9% 1,000 ML IV SCH ×4 (00:39→15:18)
[2020-03-15] MEDS: Acetaminophen 325 MG TAB PO PRN ×4 (04:18→21:41)
[2020-03-15] MEDS: Enoxaparin Sodium 40 MG/0.4 ML SYRINGE SC SCH (08:47)
--- NOTE | 2020-03-15 14:57 | PDOC.HOSPP ---
- Subjective Encounter Date: 03/15/20 Encounter Time: 14:35 Subjective: f/u for RLL PNA on Levaquin. Remains on room air but still has persistent cough. Ruled out for COVID-19. - Objective Vital Signs & Weight: Vital Signs (12 hours) Temp Pulse Resp BP Pulse Ox 03/15/20 11:21 98.5 F 81 18 120/70 96 03/15/20 07:40 98.2 F 82 16 112/64 98 03/15/20 04:04 99.3 F 91 20 118/66 96 Weight Weight 218 lb 12.8 oz I&O: 03/14/20 03/15/20 03/16/20 06:59 06:59 06:59 Intake Total 1350 3512 720 Output Total 2700 Balance 1350 812 720 Result Diagrams: 03/14/20 02:45 03/14/20 02:45 Additional Labs: Microbiology 03/13/20 20:59 Venous blood - Right Hand Blood Culture - Preliminary Specimen has been received and culture in progress. No Growth to date. 03/13/20 20:59 Venous blood - Left Hand Blood Culture - Preliminary Specimen has been received and culture in progress. No Growth to date. Laboratory Tests 03/13/20 03/13/20 03/13/20 15:23 15:23 15:23 WBC 11.7 H Neutrophils % 76.6 H Neutrophils % (Manual) D-Dimer Carbon Dioxide 20 L Troponin I B-Natriuretic Peptide 14.5 03/13/20 03/13/20 03/13/20 15:23 15:23 23:23 WBC Neutrophils % Neutrophils % (Manual) D-Dimer Less than 0.27 L Carbon Dioxide Troponin I Less than 0.010 Less than 0.010 B-Natriuretic Peptide 03/14/20 03/14/20 02:45 02:45 WBC Neutrophils % Neutrophils % (Manual) 82 H D-Dimer Carbon Dioxide Troponin I 0.021 B-Natriuretic Peptide Radiology Reviewed by me: Yes (2D echo - EF 55-60%) EKG Reviewed by me: Yes (Tele - SR) Hospitalist ROS - Medication Medications: Active Medications Generic Name Dose Route Start Last Admin Trade Name Freq PRN Reason Stop Dose Admin Acetaminophen 650 mg 03/13/20 20:26 03/15/20 08:48 Tylenol PO 650 mg Q4H PRN Administration Headache/Fever/Mild Pain (1-3) Enoxaparin Sodium 40 mg 03/14/20 09:00 03/15/20 08:47 Lovenox SC 40 mg 0900 [facility] Administration Levofloxacin 750 mg/ Device 150 mls @ 100 mls/hr 03/13/20 20:30 03/14/20 20: 09 IVPB 150 mls Q24HR MONICA Administration - Exam General Appearance: NAD, awake alert Eye: PERRL, anicteric sclera ENT: normocephalic atraumatic, no oropharyngeal lesions Neck: supple, symmetric, no JVD, no thyromegaly Heart: RRR, no murmur, no gallops, no rubs, normal peripheral pulses Respiratory - other findings: coarse sounds R chest, diminished Gastrointestinal: soft, non-tender, non-distended, normal bowel sounds, no palpable masses Extremities: no cyanosis, no clubbing, no edema Skin: normal turgor, no lesions Neurological: cranial nerve grossly intact, no new deficit Musculoskeletal: normal tone, normal strength, no muscle wasting Psychiatric: normal affect, A&O x 3 Hosp A/P (1) Pneumonia Code(s): J18.9 - PNEUMONIA, UNSPECIFIED ORGANISM Status: Acute Qualifiers: Pneumonia type: due to Pneumococcus Laterality: right Lung location: lower lobe of lung Qualified Code(s): J13 - Pneumonia due to Streptococcus pneumoniae Plan: Continue Levaquin 750mg IV daily, add Duonebs q4h, Robitussin DM (2) Dyspnea Code(s): R06.00 - DYSPNEA, UNSPECIFIED Status: Acute Plan: Secondary to #1, see above (3) COVID-19 ruled out Code(s): Z03.818 - ENCNTR FOR OBS FOR SUSP EXPSR TO OTH BIOLG AGENTS RULED OUT Status: Acute Plan: Negative COVID-19 (4) Syncope Code(s): R55 - SYNCOPE AND COLLAPSE Status: Acute - Plan continue antibiotics, social work program coordinator, respiratory therapy, out of bed/ambulate , DVT proph w/SCDs Continue resp isolation Add Duonebs q4h Continue Levaquin IV daily Negative COVID-19 serology Robitussin DM 15ml po q4h prn O2 support PRN Likely home in 24h
[2020-03-15] MEDS: Guaifenesin DM 100-10/5 ML UDCUP PO PRN ×2 (15:14→21:28)
[2020-03-15] MEDS ORDERED: Albuterol 200 PUFF (6.7GM INHALER) INH SCH (18:30)
[2020-03-16] MEDS: Acetaminophen 325 MG TAB PO PRN ×3 (04:23→22:10)
[2020-03-16] MEDS: Sodium Chloride 0.9% 1,000 ML IV SCH ×2 (04:24→18:00)
[2020-03-16] MEDS: Guaifenesin DM 100-10/5 ML UDCUP PO PRN ×4 (04:27→22:10)
[2020-03-16] MEDS: Enoxaparin Sodium 40 MG/0.4 ML SYRINGE SC SCH (09:00)
--- NOTE | 2020-03-16 13:35 | PDOC.HOSPP ---
- Subjective Encounter Date: 03/16/20 Encounter Time: 13:30 Subjective: f/u for PNA and ruled out of COVID-19. Receiving Levaquin currently. Still with prominent coughing. Overall feeling better. - Objective Vital Signs & Weight: Vital Signs (12 hours) Temp Pulse Resp BP Pulse Ox 03/16/20 11:26 98.3 F 93 12 120/73 97 03/16/20 10:40 83 16 03/16/20 08:14 98.3 F 82 16 120/70 94 L 03/16/20 07:53 72 16 98 03/16/20 04:00 99.6 F 87 20 119/68 97 Weight Weight 218 lb 12.8 oz I&O: 03/15/20 03/16/20 03/17/20 06:59 06:59 06:59 Intake Total 3512 3315 Output Total 2700 Balance 812 3315 Result Diagrams: 03/14/20 02:45 03/14/20 02:45 Additional Labs: Microbiology 03/13/20 20:59 Venous blood - Right Hand Blood Culture - Preliminary Specimen has been received and culture in progress. No Growth to date. 03/13/20 20:59 Venous blood - Left Hand Blood Culture - Preliminary Specimen has been received and culture in progress. No Growth to date. Laboratory Tests 03/13/20 03/13/20 03/13/20 15:23 15:23 15:23 WBC 11.7 H Neutrophils % 76.6 H Neutrophils % (Manual) D-Dimer Carbon Dioxide 20 L Troponin I B-Natriuretic Peptide 14.5 03/13/20 03/13/20 03/13/20 15:23 15:23 23:23 WBC Neutrophils % Neutrophils % (Manual) D-Dimer Less than 0.27 L Carbon Dioxide Troponin I Less than 0.010 Less than 0.010 B-Natriuretic Peptide 03/14/20 03/14/20 02:45 02:45 WBC Neutrophils % Neutrophils % (Manual) 82 H D-Dimer Carbon Dioxide Troponin I 0.021 B-Natriuretic Peptide Hospitalist ROS - Medication Medications: Active Medications Generic Name Dose Route Start Last Admin Trade Name Freq PRN Reason Stop Dose Admin Acetaminophen 650 mg 03/13/20 20:26 03/16/20 09:00 Tylenol PO 650 mg Q4H PRN Administration Headache/Fever/Mild Pain (1-3) Albuterol/Ipratropium 3 ml 03/15/20 19:00 03/16/20 10:40 Duoneb NEB 3 ml [id number] MOINCA Administration Enoxaparin Sodium 40 mg 03/14/20 09:00 03/16/20 09:00 Lovenox SC 40 mg 0900 MONICA Administration Guaifenesin/Dextromethorphan 15 ml 03/15/20 14:53 03/16/20 11:03 Robitussin Dm PO 15 ml Q4H PRN Administration Cough Levofloxacin 750 mg/ Device 150 mls @ 100 mls/hr 03/13/20 20:30 03/15/20 21: 28 IVPB 150 mls Q24HR MONICA Administration Sodium Chloride 1,000 mls @ 75 mls/hr 03/15/20 14:54 03/16/20 04:24 Normal Saline 0.9% IV 1,000 mls .[id number] MONICA Administration Ondansetron HCl 4 mg 03/13/20 20:26 03/16/20 11:01 Zofran IVP 4 mg Q6H PRN Administration Nausea/Vomiting - Exam General Appearance: NAD, awake alert Eye: PERRL, anicteric sclera ENT: normocephalic atraumatic, no oropharyngeal lesions Neck: supple, symmetric, no JVD, no thyromegaly Heart: RRR, no murmur, no gallops, no rubs, normal peripheral pulses Heart - other findings: S1, S2 Respiratory: no tachypnea Respiratory - other findings: few scattered rhonchi/coarse sounds in R base Gastrointestinal: soft, non-tender, non-distended, normal bowel sounds, no palpable masses Extremities: no cyanosis, no clubbing, no edema Skin: normal turgor, no lesions, no rashes Neurological: cranial nerve grossly intact, no new deficit Musculoskeletal: normal tone, normal strength, no muscle wasting Psychiatric: normal affect, A&O x 3 Hosp A/P (1) Pneumonia Code(s): J18.9 - PNEUMONIA, UNSPECIFIED ORGANISM Status: Acute Qualifiers: Pneumonia type: due to Pneumococcus Laterality: right Lung location: lower lobe of lung Qualified Code(s): J13 - Pneumonia due to Streptococcus pneumoniae (2) Dyspnea Code(s): R06.00 - DYSPNEA, UNSPECIFIED Status: Acute (3) COVID-19 ruled out Code(s): Z03.818 - ENCNTR FOR OBS FOR SUSP EXPSR TO OTH BIOLG AGENTS RULED OUT Status: Acute (4) Syncope Code(s): R55 - SYNCOPE AND COLLAPSE Status: Acute - Plan continue antibiotics, psychologist social, respiratory therapy, out of bed/ambulate , DVT proph w/SCDs Continue resp isolation Add Duonebs q4h Continue Levaquin IV daily another 24h then convert to po Negative COVID-19 serology Robitussin DM 15ml po q4h prn O2 support PRN Likely home in 24h
[2020-03-16] MEDS: Benzonatate 100 MG CAP PO SCH (19:21)
[2020-03-17] MEDS: Benzonatate 100 MG CAP PO SCH (09:43)
[2020-03-17] MEDS: Acetaminophen 325 MG TAB PO PRN (09:44)
[2020-03-17] MEDS: Sodium Chloride 0.9% 1,000 ML IV SCH (09:44)
[2020-03-17] MEDS: Enoxaparin Sodium 40 MG/0.4 ML SYRINGE SC SCH (09:44)
[2020-03-17] MEDS: Guaifenesin DM 100-10/5 ML UDCUP PO PRN (09:54)
[2020-03-17 13:18] VITALS: BP 109/68; TEMP 98.1
--- NOTE | 2020-03-17 14:07 | DIS ---
DATE OF ADMISSION: 03/13/2020 DATE OF DISCHARGE: 03/17/2020 DISCHARGE DIAGNOSES: 1. Bacterial pneumonia, suspected Streptococcus species. 2. Dyspnea secondary to bacterial pneumonia. 3. Syncope secondary to bacterial pneumonia, resolved. CONSULTATIONS: None. PERTINENT LABORATORY AND X-RAY FINDINGS: Troponin I negative x3. BNP 14.5. CBC showed a white blood cell count ranging between 10.3 to 11.7, hemoglobin ranged between 13.0 to 14.4. D-dimer less than 0.27, COVID-19 PCR not detected on 03/13/2020. Blood cultures x2 dated 03/13/2020 showed no growth at 48 hours. Respiratory culture dated 03/14/2020, showed moderate normal respiratory ayden. Portable chest x-ray dated 03/13/2020, showed right basilar consolidation compatible with pneumonia. 2D transthoracic echocardiogram dated 03/14/2020, showed ejection fraction of 55% to 60%. Normal study otherwise. HOSPITAL COURSE: The patient was initially admitted after presenting with increased shortness of breath, fever, and general malaise. Workup included chest imaging showing a right basilar infiltrate concerning for pneumonia. The patient was ruled out for COVID-19 by PCR as stated previously and continued on IV Levaquin throughout her hospital course. The patient received bronchodilator therapy in addition to antitussive agents and slowly clinically improved. The patient continued on room air and was not hypoxic during her hospital stay. Overall, the patient did remain clinically stable with supportive measures and ready for discharge on 03/17/2020. I have examined the patient at the time of discharge and discussed followup instructions. The patient clinically stable and ready for discharge. DISCHARGE MEDICATIONS: 1. Levaquin 750 mg p.o. daily x7 days. 2. Tessalon Perles 200 mg p.o. t.i.d. FOLLOWUP: The patient may follow up at [facility] within 7 days of discharge. CONDITION ON DISCHARGE: Stable. ACTIVITY: Ad-gavin. DIET: Heart healthy. CODE STATUS: Full. DISPOSITION: Home on 03/17/2020. TIME SPENT: Total time preparing and coordinating discharge is 33 minutes. Job ID: [id number]
--- NOTE | 2020-03-19 08:23 | PQF ---
LUIS FELIPE Molina DO [id number] CLINICAL DOCUMENTATION CLARIFICATION FORM: POST DISCHARGE Addendum to original discharge summary date: ____ Late entry note date: __ DATE:03/19/2020 ATTN: Luis Felipe Peres Please exercise your independent, professional judgment in responding to the clarification form. Clinical indicators are provided on the bottom of this form for your review Please check appropriate box(es): [ ] Sepsis due to Pneumonia [ x ] Localized infection without sepsis [ ] Other diagnosis [ ] Unable to determine In addition, please specify: Present on Admission (POA): [ x ] Yes [ ] No [ ] Unable to determine For continuity of documentation, please document condition throughout progress notes and discharge summary. Thank You. CLINICAL INDICATORS - SIGNS / SYMPTOMS / LABS Laboratory 03/13 WBC 11.7, Plt count 2515, [id number], Lymphocytes 14.5 Vital signs03/14 134/95, pulse 130, Resp 26, Temp 101.5 Blood culture 03/13 No growth after 5 days ED notes p2 SIRS scoring: pt did meet criteria H&P p1 03/13 Dr Aaron Comes to hospital due to dyspnea, fever and general malaise H&P p1 03/13 Dr Aaron she and a quantified fever of 101, apart from fever she started with some cough with sputum production Collected 03/14 Sputum culture:Moderate Gram positive cocci pairs and moderate gram variable rods RISK FACTORS H&P p3 03/13 Bacterial Pneumonia TREATMENT MAR 03/13 IV Levofloxacin 750 mg Mar 03/13 IV Sodium Chloride 1L Blood culture 03/13 Respiratory panel 03/13 1L oxygen Sputum culture Collected 03/14 (This form is maintained as a part of the permanent medical record) 2014 [employer]. All Rights Reserved [email or web address]
--- NOTE | 2020-03-19 08:25 | PQF ---
LUIS FELIPE Molina DO [id number] CLINICAL DOCUMENTATION CLARIFICATION FORM: POST DISCHARGE Addendum to original discharge summary date: ____ Late entry note date: __ DATE:03/19/2020 ATTN: Luis Felipe Peres Please exercise your independent, professional judgment in responding to the clarification form. Clinical indicators are provided on the bottom of this form for your review Please check appropriate box(s): [ ] Acute Respiratory Failure: [ ] with Hypoxia[ ] with Hypercapnia [ ] Acute Respiratory Failure due to: (etiology) [ x ] Hypoxia [ ] Other diagnosis [ ] Unable to determine In addition, please specify: Present on Admission (POA): [x ] Yes [ ] No [ ] Unable to determine For continuity of documentation, please document condition throughout progress notes and discharge summary. Thank You. CLINICAL INDICATORS - SIGNS / SYMPTOMS / LABS Laboratory 03/13 Venous blood gas pH7.751, pCo2 22.7, pO2 67.8, O2 sat 96.1% Vital signs03/14 134/95, pulse 130, Resp 26, Temp 101.5 H&P p1 03/13 Dr Aaron Comes to hospital due to dyspnea, fever and general malaise H&P p1 03/13 Dr Aaron she ahd a quantified fever of 101, apart from fever she started with some cough with sputum production Chest Xray 03/13 There is consolidation at he right lung base RISK FACTORS H&P p3 03/13 Bacterial Pneumonia TREATMENT MAR 03/13 Proventil Hfa 2puff neb JAN 08 -DuoNeb 3 ml neb JAN 08 IV Levofloxacin 750 mg Respiratory panel 03/13 1L oxygen Blood gas 03/13 Chest Xray Collected 03/13 (This form is maintained as a part of the permanent medical record) 2014 [employer] All Rights Reserved Maria G [email or web address]
--- NOTE | 2020-03-19 08:26 | PQF ---
LUIS FELIPE Molina DO [id number] CLINICAL DOCUMENTATION CLARIFICATION FORM: POST DISCHARGE Addendum to original discharge summary date: ____ Late entry note date: __ DATE:03/19/2020 ATTN: Luis Felipe Peres Please exercise your independent, professional judgment in responding to the clarification form. Clinical indicators are provided on the bottom of this form for your review Please check appropriate box(s): [ ] Associated Diagnosis: Hyponatremia [ x ] Not clinically significant laboratory findings [ ] Other diagnosis [ ] Unable to determine In addition, please specify: Present on Admission (POA): [ ] Yes [ x ] No [ ] Unable to determine For continuity of documentation, please document condition throughout progress notes and discharge summary. Thank You. CLINICAL INDICATORS - SIGNS / SYMPTOMS/ LABS are present in the medical record: Laboratory 03/13 POC Venous Sodium 136 Laboratory 03/14 Sodium 134 Vital signs03/14 134/95, pulse 130, Resp 26, Temp 101.5 H&P p1 03/13 Dr Aaron Comes to hospital due to dyspnea, fever and general malaise RISK FACTORS H&P p3 03/13 Bacterial Pneumonia TREATMENT Series of electrolyte labs 03/13Jan 08 IV Sodium Chloride 1L (This form is maintained as a part of the permanent medical record) 2014 [employer]. All Rights Reserved [email or web address]
--- NOTE | 2020-03-21 11:42 | EKG ---
Test Reason : Blood Pressure : / mmHG Vent. Rate : 118 BPM Atrial Rate : 118 BPM P-R Int : 144 ms QRS Dur : 080 ms QT Int : 302 ms P-R-T Axes : 038 -09 018 degrees QTc Int : 423 ms Sinus tachycardia Otherwise normal ECG Confirmed by ARLIN BLAS ([id number]), online editor HUNG VOGT ([id number]) on 03/21/2020 11:42:01 AM Referred By: Confirmed By:ARLIN Sánchez
== END 2020-03-17 13:19 | disposition home or self-care (01) | DRG 195 ==
LOC: ERS 15:07 → OBSVTOIN 20:32 → 2SW 20:32
PROVIDERS: ADMIT Internal Medicine; ATTEND Internal Medicine
PROC: 8E0ZXY6 Isolation (ICD-10-PCS; principal; 2020-03-13)
DX: J13 Pneumonia due to Streptococcus pneumoniae (principal); Z20.828 Contact with and (suspected) exposure to other viral communicable diseases; R09.02 Hypoxemia; Z98.51 Tubal ligation status; Z88.1 Allergy status to other antibiotic agents; Z88.5 Allergy status to narcotic agent; Z88.0 Allergy status to penicillin
CPT/HCPCS: 36415; 36416; 71045; 80053; 82330; 82803; 83880; 84484; 85007; 85025; 85027; 85379; 87040; 87070; 87205; 87635; 93005; 93306; 94640; 94760; 96374; 96375; J1650; J1885; J1956; J2405; J7620; U0003

== ENCOUNTER 2021-04-09 07:26 | Emergency (ER) | payer BC | END 2021-04-09 08:17 | disposition home or self-care (01) | LOC: ERS 07:26 | DX: J02.9 Acute pharyngitis, unspecified (principal) | CPT/HCPCS: 71045; 87081; 87430 ==

== ENCOUNTER 2021-09-07 20:25 | Emergency (ER) | payer BC | END 2021-09-07 23:37 | disposition home or self-care (01) | LOC: ERS 20:25 | DX: S93.402A Sprain of unspecified ligament of left ankle, initial encounter (principal); E78.5 Hyperlipidemia, unspecified; X58.XXXA Exposure to other specified factors, initial encounter ==

== ENCOUNTER 2021-10-30 23:43 | Emergency (ER) | payer BC, SELFPAY ==
[2021-10-31] MEDS ORDERED: Acetaminophen 500 MG TAB ONE (00:01)
[2021-10-31 00:45] LABS: #Lymphocytes 0.9 thou/uL (1.20-3.40); #Monocytes 0.3 thou/uL (0.11-0.59); #Neutrophils 6.5 thou/uL (1.40-6.50); %Basophils 0.1 % (0.0-1.0); %Eosinophils 0.1 % (0.0-10.0); %Monocytes 3.7 % (0.0-10.0); %Neutrophils 84.1 % (42.0-75.0); Hemoglobin 15.4 g/dL (12.0-16.0); Mean Corpuscular HGB CONC 35.6 g/dL (32.0-36.0); Mean Corpuscular Hemoglobin 31.7 pg (27.0-31.0); Platelet Count 280 thou/uL (130-400); RBC Distribution Width 11.1 % (11.5-14.5); Red Blood Cell (RBC) Count 4.85 mill/uL (4.20-5.40); White Blood Cell (WBC) Count 7.7 thou/uL (4.8-10.8)
[2021-10-31 01:03] LABS: ALT (SGPT) 22 U/L (8-55); AST (SGOT) 37 U/L (5-34); Albumin 3.7 g/dL (3.5-5.0); Alkaline Phosphatase 61 U/L (40-110); Anion Gap 16 mmol/L (10-20); BUN (Urea Nitrogen) 6 mg/dL (7.0-18.7); Bilirubin, Total 0.4 mg/dL (0.2-1.2); Calc. Creatinine Clearance 0 mL/min (70-130); Carbon Dioxide 22 mmol/L (22-29); Chloride 99 mmol/L (98-107); Globulin 4.3 g/dL (2.4-3.5); Glucose 96 mg/dL (70-105); Potassium 3.3 mmol/L (3.5-5.1); Sodium 134 mmol/L (136-145)
[2021-10-31 02:30] LABS: SARS-CoV-2 NAA Rapid Test DETECTED (NotDetected)
== END 2021-10-31 03:20 | disposition home or self-care (01) ==
LOC: ERS 23:43
DX: U07.1 COVID-19 (principal); E78.5 Hyperlipidemia, unspecified; E78.00 Pure hypercholesterolemia, unspecified
CPT/HCPCS: 0240U; 71045; 80053; 83880; 84484; 85025

== ENCOUNTER 2022-05-11 00:27 | Emergency (ER) | payer BC, SELFPAY ==
[2022-05-11 00:54] LABS: #Basophils 0.1 thou/uL (0.0-0.2); #Eosinphils 0.2 thou/uL (0.0-0.7); #Lymphocytes 3.4 thou/uL (1.20-3.40); #Monocytes 0.8 thou/uL (0.11-0.59); #Neutrophils 7.6 thou/uL (1.40-6.50); %Basophils 0.7 % (0.0-1.0); %Eosinophils 1.8 % (0.0-10.0); %Monocytes 6.3 % (0.0-10.0); %Neutrophils 63.2 % (42.0-75.0); Hemoglobin 14.7 g/dL (12.0-16.0); Mean Corpuscular HGB CONC 34.9 g/dL (32.0-36.0); Mean Corpuscular Hemoglobin 31.1 pg (27.0-31.0); Mean Corpuscular Volume 89.2 fL (78.0-98.0); Mean Platelet Volume 7.3 fL (7.4-10.4); Platelet Count 272 thou/uL (130-400); RBC Distribution Width 11.3 % (11.5-14.5); Red Blood Cell (RBC) Count 4.72 mill/uL (4.20-5.40)
[2022-05-11 00:56] LABS: Bilirubin Negative (Negative); Blood, Urine Negative (Negative); Clarity Clear (Clear); Glucose, Urine (Dipstick) Normal (Negative); Ketone, Urine Negative (Negative); Leukocyte Negative Leu/uL (Negative); Nitrite Negative (Negative); Pregnancy Test - Urine (BHCG) Negative (Negative); Pregu Control Background? CLEAR/WHITE (CLR/WHITE); Pregu Control Bar Appear? YES (CONTROL BAR); Protein, Urine (Dipstick) Negative (Neg-Trace); Specific Gravity, Urine 1.007 (1.002-1.036); Urobilinogen Normal mg/dL (Less than 2)
[2022-05-11 00:59] LABS: Specific Gravity 1.007 (1.002-1.036)
[2022-05-11 01:14] LABS: ALT (SGPT) 14 U/L (8-55); AST (SGOT) 14 U/L (5-34); Albumin 3.9 g/dL (3.5-5.0); Alkaline Phosphatase 88 U/L (40-110); Anion Gap 13 mmol/L (10-20); BUN (Urea Nitrogen) 11 mg/dL (7.0-18.7); Bilirubin, Total 0.3 mg/dL (0.2-1.2); Calc. Creatinine Clearance 0 mL/min (70-130); Calcium 9.5 mg/dL (7.8-10.44); Carbon Dioxide 22 mmol/L (22-29); Chloride 105 mmol/L (98-107); Estimated GFR 78; Globulin 3.3 g/dL (2.4-3.5); Glucose 100 mg/dL (70-105); Protein, Total 7.2 g/dL (6.0-8.3); Sodium 136 mmol/L (136-145)
[2022-05-11] MEDS ORDERED: Ketorolac Tromethamine 30 MG/ML VIAL ONE (02:46)
[2022-05-11 04:06] LABS: SARS-CoV-2 NAA Rapid Test Not Detected (NotDetected)
== END 2022-05-11 04:46 | disposition home or self-care (01) ==
LOC: ERS 00:27
DX: M54.50 Low back pain, unspecified (principal); E78.5 Hyperlipidemia, unspecified; E78.00 Pure hypercholesterolemia, unspecified; Z20.822 Contact with and (suspected) exposure to COVID-19
CPT/HCPCS: 36415; 80053; 81003; 81025; 85025; 96374; J1885; U0002

== ENCOUNTER 2022-10-30 18:43 | Emergency (ER) | payer MEDICAID, SELFPAY ==
[2022-10-30] MEDS ORDERED: Carbamide Peroxide 6.5% Otic Drops 15 ml Bottle ONE (19:19)
== END 2022-10-30 20:22 | disposition home or self-care (01) ==
LOC: ERS 18:43
DX: H61.22 Impacted cerumen, left ear (principal); E78.5 Hyperlipidemia, unspecified
CPT/HCPCS: 69210

== ENCOUNTER 2025-06-03 06:31 | Emergency (ER) | payer OTHER ==
[2025-06-03] MEDS ORDERED: Ketorolac Tromethamine 30 MG (1 mL) VIAL ONE (06:50)
[2025-06-03] MEDS ORDERED: Famotidine 20 MG TAB ONE (06:50)
[2025-06-03] MEDS ORDERED: predniSONE 20 MG TAB ONE (06:50)
== END 2025-06-03 07:28 | disposition home or self-care (01) ==
LOC: ERS 06:31
DX: S00.461A Insect bite (nonvenomous) of right ear, initial encounter (principal); H60.11 Cellulitis of right external ear; W57.XXXA Bitten or stung by nonvenomous insect and other nonvenomous arthropods, initial encounter
CPT/HCPCS: 96372; 99282; J1885; J7512